=== PATIENT | female | born 1975 | race Caucasian/White ===

== ENCOUNTER 2019-01-20 01:43 | Emergency (ER) | payer SELFPAY ==
[~2019-01-20] VITALS: Ht 170.2 cm; Wt 78.6 kg
[2019-01-20] MEDS ORDERED: LISINOPRIL10 MG PO (02:07)
[2019-01-20 02:39] VITALS: BP 154/90
== END 2019-01-20 02:25 | disposition home or self-care (01) ==
LOC: FSED 01:43
DX: M54.2 Cervicalgia (principal); V53.6XXA Passenger in pick-up truck or van injured in collision with car, pick-up truck or van in traffic accident, initial encounter; Y92.89 Other specified places as the place of occurrence of the external cause; I10 Essential (primary) hypertension
CPT/HCPCS: 99282